=== PATIENT | female | born 1965 | race Caucasian/White ===

== ENCOUNTER 2018-01-06 06:58 | Emergency (ER) | payer OTHER ==
[~2018-01-06] VITALS: Ht 160 cm; Wt 66.0 kg
[2018-01-06] MEDS ORDERED: OXYcodone/APAP 5/325MG TABLET ONE (07:30)
[2018-01-06] MEDS ORDERED: ONDANSETRON ODT 4 MG ONE (07:30)
[2018-01-06] MEDS ORDERED: ONDANSETRON ODT 4 MG PO ONE (07:30)
[2018-01-06] MEDS ORDERED: OXYcodone/APAP 5/325MG TABLET PO ONE (07:30)
[2018-01-06 08:07] VITALS: BP 169/108
== END 2018-01-06 09:01 | disposition home or self-care (01) ==
LOC: ED 08:48
DX: S20.219A Contusion of unspecified front wall of thorax, initial encounter (principal); I10 Essential (primary) hypertension; F17.210 Nicotine dependence, cigarettes, uncomplicated; V49.9XXA Car occupant (driver) (passenger) injured in unspecified traffic accident, initial encounter; Y93.89 Activity, other specified; Y92.89 Other specified places as the place of occurrence of the external cause; Y99.8 Other external cause status
CPT/HCPCS: 71046; 99284; Q0162